=== PATIENT | male | born 1980 | race Caucasian/White ===

== ENCOUNTER → 2016-09-02 | Outpatient (CLI) | payer OTHER ==
[~2016-09-02] MED LIST: COLACE 100MG C100 MG PO; CYMBALTA60 MG PO; FLEXERIL 10 MG10 MG PO; HYDROCODON-ACE1 EAC4 PO; INDERAL TAB 4040 MG PO; LATUDA20 MG PO; LEVAQUIN250 MG PO; LEVAQUIN500 MG PO; PRILOSEC OTC20 MG PO; PROTONIX40 MG PO; REMERON15 MG PO; SEROQUEL400 MG PO; SYMBICORT 16010.2 GM INH; VASOTEC5 MG PO; ZANTAC150 MG PO
[2016-09-02 13:12] LABS: HEMOGLOBIN 14.9 gm/dl (14.0-17.5); RED BLOOD COUNT 5.17 M/UL (4.20-5.50); WHITE BLOOD COUNT 6.8 K/UL (4.5-11.0)
[2016-09-02 13:36] LABS: BUN/CREATININE RATIO 12 (0-10)
== END ==
LOC: LAB 12:31
PROVIDERS: Family Medicine
DX: J18.9 Pneumonia, unspecified organism (principal); K37 Unspecified appendicitis; R53.83 Other fatigue
CPT/HCPCS: 36415; 71020; 80048; 80076; 84403; 85027

== ENCOUNTER 2016-10-16 17:22 | Emergency (ER) | payer OTHER ==
[~2016-10-16 17:22] MED LIST changes: -INDERAL TAB 4040 MG PO; -LEVAQUIN250 MG PO; -PRILOSEC OTC20 MG PO; -PROTONIX40 MG PO; -REMERON15 MG PO; -ZANTAC150 MG PO
[2016-10-16 19:53] LABS: HEMOGLOBIN 16.2 gm/dl (14.0-17.5); RED BLOOD COUNT 5.54 M/UL (4.20-5.50); WHITE BLOOD COUNT 10.4 K/UL (4.5-11.0)
[2016-10-16 20:20] LABS: BUN/CREATININE RATIO 11 (0-10)
[2017-02-12] MEDS ORDERED: PROTONIX40 MG PO (10:23)
[2017-02-12] MEDS ORDERED: REMERON15 MG PO (10:23)
[2017-02-12] MEDS ORDERED: PRILOSEC OTC20 MG PO (10:24)
[2017-02-12] MEDS ORDERED: ZANTAC150 MG PO (10:25)
== END 2016-10-16 22:30 | disposition home or self-care (01) ==
LOC: ER1 17:22
PROVIDERS: Emergency Medicine
DX: J40 Bronchitis, not specified as acute or chronic (principal); R10.12 Left upper quadrant pain; K21.9 Gastro-esophageal reflux disease without esophagitis; I10 Essential (primary) hypertension; J44.9 Chronic obstructive pulmonary disease, unspecified
CPT/HCPCS: 36415; 71020; 80053; 81001; 82150; 83690; 85025; 96374; 96375; 99284; C9113

== ENCOUNTER 2017-02-14 21:53 | Inpatient (IN) | payer OTHER ==
[~2017-02-14] VITALS: Ht 182.9 cm; Wt 111.1 kg
[~2017-02-14 21:53] MED LIST changes: +PRILOSEC OTC20 MG PO; +PROTONIX40 MG PO; +REMERON15 MG PO; +ZANTAC150 MG PO
[2017-02-14 22:20] LABS: WHITE BLOOD COUNT 13.8 K/UL (4.5-11.0)
[2017-02-14 22:23] LABS: HEMOGLOBIN 14.8 gm/dl (14.0-17.5); RED BLOOD COUNT 5.25 M/UL (4.20-5.50)
[2017-02-14 22:39] LABS: BUN/CREATININE RATIO 16 (0-10)
[2017-02-16 05:18] LABS: RED BLOOD COUNT 4.68 M/UL (4.20-5.50)
[2017-02-16 05:53] LABS: BUN/CREATININE RATIO 17 (0-10)
[2017-02-17 04:53] LABS: RED BLOOD COUNT 5.04 M/UL (4.20-5.50); WHITE BLOOD COUNT 5.5 K/UL (4.5-11.0)
[2017-02-17 05:18] LABS: BUN/CREATININE RATIO 17 (0-10)
[2017-02-18 06:41] LABS: BUN/CREATININE RATIO 17 (0-10)
[2017-02-18] MEDS ORDERED: LEVAQUIN250 MG PO (13:44)
[2017-02-18] MEDS ORDERED: INDERAL TAB 4040 MG PO (13:50)
== END 2017-02-18 12:00 | disposition home or self-care (01) | DRG 189 ==
LOC: ER1 21:53 → PROG CARE 23:00 → ZEROF 23:00 → M/S 23:00 → PROG CARE 02-15 02:43 → M/S 02-17 23:03
PROVIDERS: Family Medicine; Internal Medicine Critical Care Medicine; Internal Medicine Infectious Disease; ADMIT Internal Medicine
PROC: 5A09457 Assistance with Respiratory Ventilation, 24-96 Consecutive Hours, Continuous Positive Airway Pressure (ICD-10-PCS; principal; 2017-02-14)
DX: J96.21 Acute and chronic respiratory failure with hypoxia (principal); J18.9 Pneumonia, unspecified organism; I50.33 Acute on chronic diastolic (congestive) heart failure; J44.0 Chronic obstructive pulmonary disease with (acute) lower respiratory infection; J98.11 Atelectasis; I11.0 Hypertensive heart disease with heart failure; E87.6 Hypokalemia; K21.9 Gastro-esophageal reflux disease without esophagitis; G47.33 Obstructive sleep apnea (adult) (pediatric); J60 Coalworker's pneumoconiosis; J98.6 Disorders of diaphragm; E66.9 Obesity, unspecified; Z68.33 Body mass index [BMI] 33.0-33.9, adult; F31.9 Bipolar disorder, unspecified; R74.0 Nonspecific elevation of levels of transaminase and lactic acid dehydrogenase [LDH]; T43.215A Adverse effect of selective serotonin and norepinephrine reuptake inhibitors, initial encounter; Z79.51 Long term (current) use of inhaled steroids; Z79.899 Other long term (current) drug therapy
CPT/HCPCS: ECHO; 36415; 36600; 71010; 71020; 71250; 80053; 80202; 82785; 82803; 83735; 84132; 85025; 86140; 87081; 93005; 93306; 94640; 94660; 94664; 99285; J1120; J1650; J1940; J1956; J2543; J3370; J7050; J7070

== ENCOUNTER → 2021-03-15 | Outpatient (CLI) | payer BC ==
[~2021-03-15] MED LIST changes: +INDERAL TAB 4040 MG PO; +LEVAQUIN250 MG PO; +ZOFRAN ODT 4 MG4 MG SL
== END ==
LOC: CT 03-09 11:30 → KOH-I 15:09 → CT 16:30
DX: J60 Coalworker's pneumoconiosis (principal); R91.8 Other nonspecific abnormal finding of lung field
CPT/HCPCS: 71250